=== PATIENT | female | born 1980 | race Caucasian/White ===

== ENCOUNTER → 2020-12-19 | Outpatient (CLI) | payer OTHER ==
--- NOTE | 2020-12-20 10:15 | US ---
EXAMINATION TYPE: US pelvis complete transvag DATE OF EXAM: 12/19/2020 COMPARISON: NONE CLINICAL HISTORY: D25.9 Leiomyoma of uterus. pain TECHNIQUE: Transvaginal (TV) and Transabdominal (TA) . EXAM MEASUREMENTS: Uterus: 9.8 x 5.2 x 8.4 cm Endometrial Stripe: 1.4 cm Right Ovary: 2.6 x 1.9 x 2.8 cm Left Ovary: 2.8 x 1.8 x 2.4 cm 1. Uterus: Anteverted Fibroid seen measuring 6.0 x 5.6 x 6.1 cm 2. Endometrium: appears wnl 3. Right Ovary: wnl 4. Left Ovary: wnl 5. Bilateral Adnexa: wnl 6. Posterior cul-de-sac: wnl Anteverted prominent uterus with central poorly defined heterogeneous slightly hypoechoic 6.0 cm intr amural fibroid. A few tiny nabothian cysts in the cervix. Endometrial stripe not well seen on images saved. No free f luid. Both ovaries seen and are symmetric and normal in size. No suspicious extraovarian adnexal mass. IMPRESSION: There is confirmation of 6.0 cm intramural fibroid.
== END | disposition home or self-care (01) ==
LOC: RADUSWWP 16:32
PROVIDERS: ATTEND Obstetrics & Gynecology
DX: D25.1 Intramural leiomyoma of uterus (principal)
CPT/HCPCS: 76830; 76856

== ENCOUNTER → 2021-03-30 | Outpatient (CLI) | payer OTHER ==
--- NOTE | 2021-03-30 13:56 | US ---
EXAMINATION TYPE: US pelvic complete DATE OF EXAM: 03/30/2021 COMPARISON: US 12/19/20 CLINICAL HISTORY: D25.9 KNOWN UTERINE LETOMYOMA. TECHNIQUE: Transabdominal (TA). Transabdominal sonographic images of the pelvis were acquired. Tra nsvaginal sonographic images were medically necessary to better assess the following anatomy: Date of LMP: 03/17/21 EXAM MEASUREMENTS: Uterus: 10.8 x 7.8 x 6.0 cm Endometrial Stripe: 0.5 cm Right Ovary: 3.1 x 2.1 x 1.9 cm Left Ovary: 4.2 x 2.5 x 2.4 cm 1. Uterus: Anteverted right sided fibroid = 5.5 x 5.1 x 5.2 cm 2. Endometrium: wnl 3. Right Ovary: wnl 4. Left Ovary: cyst = 1.9 x 1.7 x 1.4 cm 5. Bilateral Adnexa: wnl 6. Posterior cul-de-sac: wnl IMPRESSION: 1. Leiomyomatous change of the uterus. 2. Left ovarian cyst.
== END | disposition home or self-care (01) ==
LOC: RADUSWWP 13:05
PROVIDERS: ATTEND Obstetrics & Gynecology
DX: D25.9 Leiomyoma of uterus, unspecified (principal); N83.202 Unspecified ovarian cyst, left side
CPT/HCPCS: 76856